=== PATIENT | female | born 1945 | race Caucasian/White ===

== ENCOUNTER 2016-09-26 07:30 | Inpatient (IN) | payer MEDICARE ==
[~2016-09-26] VITALS: Ht 149.9 cm; Wt 100.4 kg
[~2016-09-26 07:30] MED LIST: ASPI-110 PO; CARD240C6 PO; CARV3.125 PO; LORA-373 PO; MULT1TAB84 PO; SERT-132 PO; VITA100018 PO
[2016-10-03] MEDS ORDERED: CARV3.12 PO (06:12)
[2016-10-03 06:13] VITALS: BP 134/59; PULSE 62; RESP 16; TEMP 97.8; O2SAT 97
[2016-10-03] MEDS ORDERED: ceFAZolin 1,000 MG/NS 100 ML IV SCH ×2 (06:15)
[2016-10-03] MEDS ORDERED: HEPARIN SODIUM - SQ 10,000 UNITS/ML VIAL SQ SCH (06:15)
[2016-10-03] MEDS ORDERED: INSULIN HUMAN REGULAR 1,000 UNITS/10 ML VIAL SQ PRN (06:30)
[2016-10-03] MEDS ORDERED: METOPROLOL TARTRATE 25 MG TAB PO PRN (06:30)
[2016-10-03] MEDS ORDERED: CHLORHEXIDINE GLUCONATE 2 % 1 PACK (2 CLOTHS) TOPICAL PRN (06:30)
[2016-10-03] MEDS ORDERED: SODIUM CHLORID 0.9% 500 ML IV PRN (06:30)
[2016-10-03] MEDS ORDERED: LACTATED RINGER'S 1000 ML IV PRN (06:30)
[2016-10-03] MEDS ORDERED: POVIDONE IODINE 5% (ANTISEPSIS KIT) 4 APPLICATIONS EACH NARE PRN (06:30)
[2016-10-03] MEDS ORDERED: HYDROmorphone HCL PF 2 MG/ML VIAL ONE (06:51)
[2016-10-03] MEDS ORDERED: ACETAMINOPHEN 1000 MG/100 ML VIAL IV ONE ×2 (06:51→07:10)
[2016-10-03] MEDS ORDERED: SUGAMMADEX SODIUM 200 MG/2 ML VIAL IV PUSH ONE ×2 (06:51)
[2016-10-03] MEDS ORDERED: FAMOTIDINE 20 MG/2 ML VIAL ONE (07:10)
[2016-10-03] MEDS ORDERED: DEXAMETHASONE SOD PHOS 4 MG/ML VIAL ONE (07:15)
[2016-10-03] MEDS ORDERED: MIDAZOLAM HCL 2 MG/2 ML VIAL ONE (07:15)
[2016-10-03] MEDS ORDERED: LIDOCAINE 1%/EPINEPHrine 1:100,000 SOLN 30 ML VIAL INFIL ONE (08:00)
[2016-10-03] MEDS ORDERED: METHYLENE BLUE 10 MG/ML VIAL OTHER ONE (10:33)
[2016-10-03] MEDS: KETOROLAC TROMETHAMINE 30 MG/ML (IVP) VIAL IVP SCH ×3 (12:00→23:47)
[2016-10-03] MEDS ORDERED: SODIUM CHLORIDE 0.9% FLUSH 10 ML FLUSH IV FLUSH PRN (12:00)
[2016-10-03] MEDS ORDERED: LORazepam 0.5 MG TAB PO PRN (12:00)
[2016-10-03] MEDS ORDERED: ONDANSETRON HCL 4 MG/2 ML VIAL IVP PRN (12:00)
[2016-10-03] MEDS ORDERED: diphenhydrAMINE HCL 25 MG CAP PO PRN (12:00)
[2016-10-03] MEDS: D5-1/2 NS + KCL 20 MEQ INJ 1,000 ML IV SCH ×2 (12:23→23:50)
[2016-10-03] MEDS ORDERED: DO NOT ADM ANY ANTICOAGULANT DRUGS PRN (12:30)
[2016-10-03] MEDS ORDERED: *morphine SULFATE 8 MG/ML PERIprocedure ONLY ONE ×2 (12:42→13:11)
--- NOTE | 2016-10-03 13:17 | EKG ---
Date Performed: 10/03/2016 Time Performed: 06:28:54 PTAGE: 71 years EKG: Sinus rhythm NORMAL ECG Patient is no longer in rapid atrial fibrillation compared to the old tracing. PREVIOUS TRACING 04/20/16 16.02.58 DOCTOR: Mingo Garay Interpretating Date/Time 10/03/2016 13:15:14
[2016-10-03 14:40] VITALS: BP 123/60; PULSE 64; RESP 20; TEMP 96.1; O2SAT 99
[2016-10-03] MEDS ORDERED: ePHEDrine/NS 25 MG/5 ML SYR IV ONE (14:56)
[2016-10-03] MEDS ORDERED: PROPOFOL 200 MG/20 ML AMP IV ONE (14:56)
[2016-10-03] MEDS ORDERED: NORMOSOL R INJ 1,000 ML IV ONE (14:57)
[2016-10-03] MEDS ORDERED: KETOROLAC TROMETHAMINE 60 MG/2 ML (IM) VIAL IM ONE (14:57)
[2016-10-03] MEDS ORDERED: LACTATED RINGER'S 1000 ML INJ 1,000 ML IV ONE (14:57)
[2016-10-03] MEDS ORDERED: ONDANSETRON HCL 4 MG/2 ML VIAL IV PUSH ONE (14:57)
--- NOTE | 2016-10-03 15:21 | PD.ONC.PN ---
Subjective Subjective Remarks Post op note pt doing well no complaints family at bedside she is eating full liquids denies any nausea or vomiting Objective Data Date Time Temp Pulse Resp B/P Pulse Ox O2 Delivery O2 Flow Rate FiO2 10/03/16 14:40 96.1 64 20 123/60 99 10/03/16 13:45 97.3 69 14 117/59 95 Nasal Cannula 2 10/03/16 13:30 67 11 110/54 96 10/03/16 13:15 70 14 112/51 98 10/03/16 13:00 66 12 113/52 96 10/03/16 12:45 65 10 113/57 95 10/03/16 12:30 63 14 113/93 96 10/03/16 12:15 67 12 114/54 96 Nasal Cannula 2 10/03/16 12:00 97.2 74 18 100/54 97 Nasal Cannula 2 10/03/16 06:13 97.8 62 16 134/59 97 10/03/16 10/03/16 10/03/16 06:59 14:59 22:59 Intake Total 1800 ml Output Total 500 ml Balance 1300 ml Laboratory Results Laboratory Tests Test 10/03/16 06:10 Blood Type A POSITIVE Antibody Screen POSITIVE Antibody Identification Anti-K Antigen Identification K Antigen - NEGATIVE Crossmatch Leukocyte-Reduced Red Blood Cells Blood Bank Comment Administered Medications Medications (Trade) Dose Ordered Sig/Lis Route PRN Reason Start Time Stop Time Status Last Admin Dose Admin Potassium Chloride/Dextrose/ Sod Cl (D5-1/2 NS + KCl 20 Meq Inj) 1,000 ml @ 100 mls/hr Q10H IV 10/03/16 13:00 10/03/16 12:23 Objective Remarks GENERAL: Well-nourished, well-developed patient. SKIN: Warm and dry. HEAD: Normocephalic. EYES: No scleral icterus. No injection or drainage. NECK: Supple, trachea midline. CARDIOVASCULAR: Regular rate and rhythm without murmurs. RESPIRATORY: Breath sounds equal bilaterally. No accessory muscle use. GASTROINTESTINAL: Abdomen soft, non-tender, nondistended. SS are c/d/i EXTREMITIES: teds and scds MUSCULOSKELETAL: Adequate muscle tone. NEUROLOGICAL: No obvious focal deficit. Awake, alert, and oriented x3. PSYCHIATRIC: Appropriate mood and affect; insight and judgment normal. Assessment/Plan Problem List: (1) Ovarian cancer Status: Acute (2) Post-operative state Status: Acute Plan: post op orders are in the chart IS to bedside ADAT ok to get OOB to chair pain meds per EMR anticipate D/C home tomorrow Leah De Luna October 03, 2016 15:21
[2016-10-03 16:43] VITALS: BP 126/60; PULSE 73; RESP 20; TEMP 96.3; O2SAT 97
[2016-10-03 20:00] VITALS: BP 117/56; PULSE 75; RESP 16; TEMP 97.7; O2SAT 96
[2016-10-03] MEDS: SODIUM CHLORIDE 0.9% FLUSH 10 ML FLUSH IV FLUSH SCH (20:31)
[2016-10-03] MEDS: traMADol HCL 50 MG TAB PO PRN (20:31)
[2016-10-03] MEDS: CARVEDILOL 3.125 MG TAB PO SCH (20:31)
[2016-10-04] VITALS: BP 109/55; PULSE 71; RESP 16; TEMP 97.7; O2SAT 97
[2016-10-04] MEDS: traMADol HCL 50 MG TAB PO PRN ×2 (03:50→11:22)
[2016-10-04 04:00] VITALS: BP 114/56; PULSE 72; RESP 16; TEMP 96.3; O2SAT 99
[2016-10-04] MEDS: KETOROLAC TROMETHAMINE 30 MG/ML (IVP) VIAL IVP SCH (05:55)
[2016-10-04] MEDS ORDERED: ULTR50TA5 PO (07:43)
[2016-10-04 08:04] VITALS: O2SAT 96; O2SAT 97
[2016-10-04] MEDS: CARVEDILOL 3.125 MG TAB PO SCH (08:22)
[2016-10-04] MEDS: SODIUM CHLORIDE 0.9% FLUSH 10 ML FLUSH IV FLUSH SCH (08:25)
[2016-10-04 08:53] VITALS: BP 130/63; PULSE 70; RESP 20; TEMP 96.5; O2SAT 92
[2016-10-04] MEDS ORDERED: SERTRALINE HCL 50 MG TAB PO SCH (09:00)
[2016-10-04] MEDS ORDERED: DILTIAZEM-CD 240 MG CAP ER PO SCH (09:00)
[2016-10-04 09:13] LABS: AUTOMATED NEUTROPHIL # 6.8 TH/MM3 (1.8-7.7); BASOPHIL % 0.3 % (0.0-2.0); HEMATOCRIT 27.2 % (35.0-46.0); HEMO FLAGS DIFF FINAL; LYMPH % 6.7 % (9.0-44.0); LYMPHOCYTE # 0.5 TH/MM3 (1.0-4.8); MEAN CELL VOLUME 106.8 FL (80.0-100.0); MEAN CORPUSCULAR HEMOGLOBIN 37.2 PG (27.0-34.0); MEAN CORPUSCULAR HGB CONC 34.8 % (32.0-36.0); MONO % 6.8 % (0.0-8.0); NEUT % 86.2 % (16.0-70.0); PLATELET COUNT 231 TH/MM3 (150-450); RED BLOOD COUNT 2.55 MIL/MM3 (4.00-5.30); WHITE BLOOD COUNT 7.9 TH/MM3 (4.0-11.0)
[2016-10-04 10:03] LABS: BICARBONATE 27.6 MEQ/L (21.0-32.0); POTASSIUM 4.8 MEQ/L (3.5-5.1)
--- NOTE | 2016-10-04 10:51 | MP ---
cc: MADONNA DAVE D.O., KELLY L. MD DATE OF SURGERY: 10/03/2016 PREOPERATIVE DIAGNOSIS 1. Ovarian cancer. 2. Status post neoadjuvant Taxol and carboplatin chemotherapy. POSTOPERATIVE DIAGNOSIS 1. Ovarian cancer. 2. Status post neoadjuvant Taxol and carboplatin chemotherapy. 3. Extensive intraperitoneal adhesions. PROCEDURE Laparoscopy with extensive lysis of adhesions, robotic-assisted laparoscopic hysterectomy, bilateral salpingo-oophorectomy, omentectomy. SURGEON Tiki Calvin FLOOR INSPECTOR [employer]. ANESTHESIA General endotracheal anesthesia. ESTIMATED BLOOD LOSS 200 cc. IV FLUIDS 1800 cc. URINE OUTPUT 300 cc. HISTORY A 71-year-old female who presented with ascites, carcinomatosis, omental tumor, pelvic masses, elevated CA-125 of approximately 2400. Biopsy confirmed papillary serous adenocarcinoma. She has been treated now with Taxol and carboplatin neoadjuvant and had an excellent response to chemotherapy. I believe she has had at least 5 cycles of chemotherapy. Her CA-125 and physical exam have normalized. Her CAT scan showed dramatic improvement in measurable disease. She is counseled regarding the potential value of interval surgery, understands it is expected there will still likely be cancer detected in the histologic specimens and that additional chemotherapy would be needed. We have discussed laparoscopy robotics, understands she may have extensive adhesions given her prior surgical history, previous hernia repair with mesh placement. She is seen in the pre-op holding area where these findings are again discussed and reviewed. She expresses good understanding and would like to move forward with surgery. FINDINGS Upon laparoscopic entry in the left upper quadrant there were adhesions immediately around the cannula. The omentum was densely adherent to the anterior abdominal wall from the abdomen extending down into the pelvis. There was what appeared to be two separate surgical hernia meshes in the abdominal wall to which the omentum is densely adherent with a portion of transverse colon loosely adherent to this area. There were adhesions in the right and left lower quadrant and there were filmy adhesions obliterating the cul-de-sac fixing the ovaries to the pelvic sidewalls and limited mobility of the colon and loops of small bowel. What is immediately noted is the dramatic response to chemotherapy. Clearly where the filmy adhesions are suggests previous tumor. There are some fine implants no bigger than 1-3 mm that appear almost completely obliterated from chemotherapy. There is no mass effect. The omentum despite being densely adherent and somewhat thickened has no overt tumor mass or overt grossly visible tumor. The ovaries and not appreciably enlarged. The uterus is normal. There is no appreciably enlarged lymph nodes. At the conclusion of the case essentially there is no measurable disease that process. There is no ascites. There is perhaps 1-3 mm implants which are flat or level with the peritoneum suggesting that they were tumor that has responded to chemotherapy. There is no grossly detectable tumor beyond this that remains at the completion of the case. STATEMENT OF COMPLEXITY The complexly of this case was significantly increased due to extensive adhesions requiring a significant amount of time and effort at laparoscopy to gain surgical exposure to restore normal anatomy and then with the robotic portion to help additional lysis of adhesions to accomplish surgical objectives, and modifier should be applied accordingly. DETAILS OF PROCEDURE The patient was taken to the operating room, placed in dorsal lithotomy position. After general endotracheal anesthesia was administered a timeout was undertaken. The patient was identified by sight recognition and hospital ID bracelet, and the proposed procedure was reviewed and confirmed. She was carefully positioned in padded Brian stirrups. Her arms were padded and secured to the sides. She was further secured to the operating table with eggcrate padding and tape in a cross chest over the shoulder fashion. All sites were noted to be properly aligned with no malalignments or pressure points. She was prepped in sterile fashion, draped below the waist, placed in high lithotomy position. The cervix was grasped. The uterine cavity was sounded. The standard VCare manipulator was inserted and secured in the usual fashion. A Alan catheter was placed in the bladder. She was returned to low lithotomy position. A change of sterile gloves was undertaken and we completed draping in anticipation of laparoscopy. We confirmed that an orogastric tube was in the stomach on suction. With manual elevation of the abdominal wall and direct laparoscopic visualization a 5 mm cannula was introduced into the peritoneal cavity. Carbon dioxide gas was insufflated. Visibility was limited due to adhesions immediately surrounding the cannula which were taken down with blunt grasper. The camera was reinserted and visibility to the peritoneal cavity was allowed. Under laparoscopic visualization a 12 mm cannula was able to be placed in the right upper quadrant. Adhesions were taken down in the midline with blunt dissection until a space was cleared to allow a 12 mm cannula to be placed in the midline above the umbilicus. Blunt dissection and sharp dissection was then used to take down the omentum, to peel the omentum attachments and transverse colon from the hernia mesh against the abdominal wall. This dissection was continued toward the pelvis until the distal end of the omentum remained attached at the edge of the lower mesh where the adhesions were dense. Additional bands of adhesions were taken down in the right and left lower quadrant. Filmy adhesions were lysed to help mobilize the colon and small bowel and mobilize small bowel loops from the pelvis to open the cul-de-sac and to take down adhesions around the ovaries. She was placed in steep Trendelenburg position. Peritoneal washings were obtained for cytology. The anatomy was surveyed with findings as described above. A 12 mm cannula was placed in the left lateral quadrant and the original 5 was exchanged for an 8 mm cannula. The distal portion of the omentum was left intentionally adherent to the anterior abdominal wall to help facilitate retraction and dissection. The robotic system was brought into the operative field. Monopolar scissors, fenestrated bipolar forceps and ProGrasp manipulator were placed in arms #1, 2 and 3 respectively. I took my place at the surgeon's console. It is noted that three Ray-Ruel sponges had been placed around the root of the small bowel mesentery. Initiation of dissection was addressed toward taking out the omentum. The dissection was started near the hepatic flexure. Nonvascular attachments were taken down with sharp dissection. Vascular attachments were isolated, cauterized and transected in a stepwise fashion following along the transverse colon. A portion of the gastrocolic ligament was also removed as the vascular pedicles were isolated, cauterized and transected and this was continued up toward the splenic flexure as sharp dissection was used to release nonvascular attachments to the transverse colon. Vascular attachments were isolated, cauterized and transected. This was continued in a stepwise fashion until the infracolic omentum had been detached from the transverse colon and the gastrocolic ligament. The distal portion of the omentum now was taken down with sharp dissection and bipolar cautery was used to render the abdominal wall hemostatic where this was attached. The omentum was placed in the right lower quadrant for later retrieval. Attention was directed toward the pelvis. Additional lysis of adhesion was carried out to further open the cul-de-sac and mobilize the tubes and ovaries and to mobilize the colon from its overlying attachments to the right pelvis. The right round ligament was isolated, cauterized and transected. The anterior and posterior leafs of the broad ligament were opened. The right ureter was identified. The right infundibulopelvic ligament was isolated. The intervening peritoneum was opened. The infundibulopelvic ligament was isolated to the level of the pelvic brim where it was cauterized and transected. The posterior peritoneum was opened along the right side of the uterus and cervix and the right vesicouterine peritoneum dissected off the lower uterine segment and cervix. Additional scar tissue was encountered given her prior sections and these bands of scar tissue were isolated and taken down with sharp dissection until the bladder flap could be retracted below the level of the cervix. The right uterine vessels were skeletonized, cauterized and transected as were the cardinal, paracervical and uterosacral ligaments thereby freeing the attachments along the right side of the uterus and cervix. Attention was directed toward the left side where the left round ligament was isolated, cauterized and transected. The anterior and posterior leafs of the broad ligament were opened. The left ureter was identified. The left infundibulopelvic ligament was isolated. The infundibulopelvic ligament was isolated to the level of the pelvic brim where it was cauterized and transected. The posterior peritoneum was opened along the left side of the uterus and cervix and what remained of the vesicouterine peritoneum was taken down on the left side and the left uterine vessels were skeletonized. The left uterine vessels were cauterized and transected as were the cardinal, paracervical and uterosacral ligaments. Colpotomy was performed the cervix from the upper vagina. The specimen was withdrawn transvaginally which included uterus, cervix, tubes and ovaries and a pneumo-occluder balloon was placed in the vagina to maintain pneumoperitoneum. A 15 cm EndoCatch bag was introduced transvaginally and the omental fragments and specimens were combined and placed in the EndoCatch bag and withdrawn transvaginally. Next, each of the three Ray-Ruel sponges that had been placed in the peritoneal cavity were removed individually using a ring forceps. There were inspected and noted to be removed in their entirety. Visual inspection confirmed there were no remaining foreign objects in the peritoneal cavity. Preliminary counts were correct. Instruments 1 and 3 were exchanged for a needle racing driver as 0 Vicryl 0 suture was introduced. The vaginal cuff was closed starting at the left corner, full-thickness closure incorporating the posterior peritoneum, and the uterosacral ligament tied via instrument tie. The closure was held on countertraction as a running continuous full-thickness closure was carried across the vaginal apex to the contralateral corner where it was similarly suture ligated. The needle was cut and removed. The integrity of the bladder was confirmed by filling the bladder with saline dyed with methylene blue. There was no extravasation of dye, no weak spots in the bladder, good margin between the bladder and the vaginal cuff suture line, good peristalsis of ureters, and the bladder was drained. The pelvis and abdomen were thoroughly irrigated. All sites were noted to be hemostatic. No remaining tumor amenable to surgical resection as described above. The anatomy had been restored to normal where essentially all detectable adhesions had been lysed. The robotic instruments were removed. The robotic system was disengaged from the operative field. I reentered the bedside under sterile condition. We closed and 12 mm fascial defect with interrupted 0 PDS which was tied securely and rendered the fascia completely airtight and hemostatic. The remaining cannulas were withdrawn. Carbon dioxide gas was removed. 3-0 Vicryl subcutaneous, 3-0 Vicryl subcuticular and Steri-Strips were used to close the skin incisions. She was returned to dorsal lithotomy position. Pelvic exam confirmed the vaginal cuff was well-supported, the suture line was intact and hemostatic. There were no vaginal lacerations. There were no remaining foreign objects in the vagina. Final counts were correct. She was returned to dorsal supine position and was pending reversal of anesthesia when I left the operating room to precede her to the post-anesthesia care unit. MD MANDI Mendez/MAURA /12:32 PM /10:23 AM
[2016-10-04 12:58] VITALS: BP 114/55; PULSE 72; RESP 20; TEMP 97.1; O2SAT 93
--- NOTE | 2016-10-05 08:09 | MD ---
cc: MADONNA DAVE,DAVID LEAL MD, M.D. ADMISSION DATE: 10/03/2016 DISCHARGE DATE: 10/04/2016 PROCEDURE 10/03/2016, laparoscopy with extensive lysis of adhesions, robotic-assisted laparoscopic hysterectomy, bilateral salpingo-oophorectomy, omentectomy. DIAGNOSIS Ovarian cancer status post neoadjuvant Taxol and carboplatin chemotherapy. HOSPITAL COURSE She did well during the first 24 hours postop, tolerated oral intake. Alan catheter was removed pending voiding, hemodynamically stable. OBJECTIVE In's and out's of 2040/900+. Labs pending at the time of this dictation. PHYSICAL EXAMINATION VITAL SIGNS: She is afebrile, pulse 69-75, respirations 14-20, blood pressure 109-123 over 56-60, O2 saturations greater than or equal to 97% while awake. Alert and oriented x3. LUNGS: Clear except for mild rales at the bases. CARDIOVASCULAR: Regular rate and rhythm. ABDOMEN: Soft. Incisions clean and dry. 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 EXTREMITIES: Nontender. ASSESSMENT Postop day #1 doing well in early postop period. Preliminary findings, pathology and steps taken at surgery were discussed and reviewed, activities, restrictions reviewed. Questions were answered. She expressed good understanding. PLAN Anticipate she will meet criteria for discharge to home. She is to call our office to schedule follow up in 2 weeks. She is to resume her prior medications. Prescription is provided for tramadol for pain and our office number is again made available should she have any questions or problems between now and the time of scheduled followup. MD MANDI Mendez/MARCELLA /7:47 AM /8:01 AM
== END 2016-10-04 14:04 | disposition home or self-care (01) | DRG 737 ==
LOC: HSDI 10-03 05:28 → HOCA 10-03 13:56
PROVIDERS: ADMIT Obstetrics & Gynecology Gynecologic Oncology; ATTEND Obstetrics & Gynecology Gynecologic Oncology
PROC: 0UT94ZZ Resection of Uterus, Percutaneous Endoscopic Approach (ICD-10-PCS; 2016-10-03)
PROC: 0UTC4ZZ Resection of Cervix, Percutaneous Endoscopic Approach (ICD-10-PCS; 2016-10-03)
PROC: 0UNF4ZZ Release Cul-de-sac, Percutaneous Endoscopic Approach (ICD-10-PCS; 2016-10-03)
PROC: 0UT74ZZ Resection of Bilateral Fallopian Tubes, Percutaneous Endoscopic Approach (ICD-10-PCS; 2016-10-03)
PROC: 0DBS4ZZ (ICD-10-PCS; 2016-10-03)
PROC: 8E0W4CZ Robotic Assisted Procedure of Trunk Region, Percutaneous Endoscopic Approach (ICD-10-PCS; 2016-10-03)
PROC: 0UT24ZZ Resection of Bilateral Ovaries, Percutaneous Endoscopic Approach (ICD-10-PCS; principal; 2016-10-03 07:16)
DX: C56.9 Malignant neoplasm of unspecified ovary (principal); C78.6 Secondary malignant neoplasm of retroperitoneum and peritoneum; Z92.21 Personal history of antineoplastic chemotherapy; N73.6 Female pelvic peritoneal adhesions (postinfective)
CPT/HCPCS: 80048; 85025; 86077; 86850; 86870; 86900; 86901; 86902; 86920; 86922; 88112; 88305; 88307; 88309; 93005; 94150; J0131; J0690; J1100; J1170; J1644; J1885; J2250; J2270; J2405; J3010; J3480; J7120

== ENCOUNTER 2018-03-16 11:58 | Inpatient (IN) ==
[2018-03-16] MEDS ORDERED: Sod Chloride 0.9% Inj 1,000 ML IV.SIG ONE (12:28)
--- NOTE | 2018-03-16 12:36 | ED ---
HPI General Chief complaint: Recheck/Abnormal Lab/Rx Stated complaint: Dizzy Complaint Time Seen by Provider: 03/16/18 12:20 History of Present Illness HPI narrative: Patient is a 72-year-old female with history of ovarian cancer operated few months ago, was sent to emergency room after procedure of paracentesis. Patient was found and lost to oxygen saturation and low blood pressure. 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 Denies fever, cough, nausea, vomiting, diarrhea or constipation. Related Data Home Medications Medication Instructions Recorded Confirmed carvedilol 3.125 mg PO DAILY 03/16/18 03/16/18 diltiazem HCl [DILT-XR] 240 mg PO DAILY 03/16/18 03/16/18 furosemide 20 mg PO BID 03/16/18 03/16/18 lorazepam 0.5 mg PO Q8H PRN 03/16/18 03/16/18 multivitamin 1 tab PO DAILY 03/16/18 03/16/18 potassium chloride 10 meq PO DAILY 03/16/18 03/16/18 sertraline 50 mg PO DAILY 03/16/18 03/16/18 Allergies Allergy/AdvReac Type Severity Reaction Status Date / Time hydrocodone Allergy Intermediate SEVERE Verified 03/16/18 10:00 ITCHING Review of Systems ROS: all other systems reviewed are negative Constitutional Comments: Generalized weakness PMFSH Medical History Medical History Ascites (Acute) Chronic kidney disease (Acute) History of hysterectomy (Acute) Ovarian cancer (Acute) Port-A-Cath in place (Acute) Social History Social History Substance History: No History of Abuse Smoking Status: Former smoker How Often Do You Have a Drink Containing Alcohol: 2 to 3 times a week Recent Travel in [place] within the Last 8 Weeks: No Recent Out of Country Travel within the Last 8 Weeks: No Exam Narrative Exam Narrative: GENERAL: 72-year-old female in no apparent distress SKIN: Focused skin assessment warm/dry. HEAD: Atraumatic. Normocephalic. EYES: Pupils equal and round. No scleral icterus. No injection or drainage. ENT: No nasal bleeding or discharge. Mucous membranes pink and moist. NECK: Trachea midline. No JVD. CARDIOVASCULAR: Regular rate and rhythm. No murmur appreciated. RESPIRATORY: No accessory muscle use. Clear to auscultation. Breath sounds equal bilaterally. GASTROINTESTINAL: Abdomen soft, mildly tender in periumbilical area, nondistended. Hepatic and splenic margins not palpable. MUSCULOSKELETAL: No obvious deformities. No clubbing. No cyanosis. No edema. NEUROLOGICAL: Awake and alert. No obvious cranial nerve deficits. Motor grossly within normal limits. Normal speech. PSYCHIATRIC: Appropriate mood and affect; insight and judgment normal. 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 Blood work, chest x-ray, urine analysis ordered. IV fluids given. Patient refused pain medications. Hemoglobin is slightly lower than usually, rectal exam was done, stool is guaiac negative. Patient has persistently low blood pressure at level 90-100 systolic, generalized weakness. Calcium is 7.4, replaced. Patient was placed on observation under Dr. Green service. Medical Screen Exam Complete: Yes Emergency Medical Condition: Yes Differential Diagnosis Differential Diagnosis: UTI versus pneumonia versus metastasis. Lab Data Result diagrams: 03/16/18 12:40 03/16/18 12:40 Lab Results 03/16/18 03/16/18 03/16/18 Range/Units 12:40 12:40 12:40 WBC 8.6 (4.0-11.0) th/mm3 RBC 2.45 L (4.00-5.30) mil/mm3 Hgb 8.5 L (11.6-15.3) gm/dL Hct 24.9 L (35.0-46.0) % MCV 101.9 H (80.0-100.0) fL MCH 34.7 H (27.0-34.0) pg MCHC 34.1 (32.0-36.0) % RDW 12.9 (11.6-17.2) % Plt Count 291 (150-450) th/mm3 MPV 7.0 (7.0-11.0) fL Neut % (Auto) 93.6 H (16.0-70.0) % Lymph % (Auto) 5.0 L (9.0-44.0) % [place] % (Auto) 0.7 (0.0-8.0) % Eos % (Auto) 0.5 (0.0-4.0) % Baso % (Auto) 0.2 (0.0-2.0) % Neut # (Auto) 8.1 H (1.8-7.7) th/mm3 Lymph # (Auto) 0.4 L (1.0-4.8) th/mm3 [place] # (Auto) 0.1 (0.0-0.9) th/mm3 Eos # (Auto) 0.0 (0.0-0.4) th/mm3 Baso # (Auto) 0.0 (0.0-0.2) th/mm3 WBC Differential . Differential Comment Auto diff final Puncture Site Patient Temperature O2 Saturation (90-100) % ABG pH (7.380-7.420) ABG pCO2 (38-42) mmHg ABG pO2 (61-120) mmHg ABG HCO3 (22-26) mmol/L ABG O2 Content (12.0-20.0) Vol % ABG Base Excess (-2-2) mmol/L ABG Methemoglobin (0-2) % Brian Test Hemoglobin (12.0-16.0) G/DL Carboxyhemoglobin (0-4) % O2 Delivery Device Inspired O2 % Critical Value Sodium 132 L (136-145) meq/L Potassium 3.9 (3.5-5.1) meq/L Chloride 97 L (98-107) meq/L Carbon Dioxide 23.0 (21.0-32.0) meq/L Anion Gap 12 (5-15) meq/L BUN 28 H (7-18) mg/dL Creatinine 2.28 H (0.50-1.00) mg/dL Estimated GFR 21 L (>89) mL/min Random Glucose 95 (74-106) mg/dL Calcium 7.4 L* (8.5-10.1) mg/dL Prot Corrected Calcium 7.8 L (8.5-10.1) mg/dL Magnesium 1.5 (1.5-2.5) mg/dL Total Bilirubin 0.4 (0.2-1.0) mg/dL AST 51 H (15-37) U/L ALT 29 (10-53) U/L Alkaline Phosphatase 59 (45-117) U/L Troponin I Less than 0.02 L (0.02-0.05) ng/mL B-Natriuretic Peptide 20 (0-100) pg/mL Total Protein 6.3 L (6.4-8.2) g/dL Albumin 2.9 L (3.4-5.0) g/dL Urine Color (Yellw/Straw) Urine Clarity (Clear) Urine pH (5.0-8.5) Ur Specific [place] (1.002-1.035) Urine Protein (Neg-Trace) mg/dL Urine Glucose (UA) (Negative) mg/dL Urine Ketones (Negative) mg/dL Urine Occult Blood (Negative) Urine Nitrate (Negative) Urine Bilirubin (Negative) Urine Urobilinogen (Less than 2) mg/dL Ur Leukocyte Esterase (Negative) Urine RBC (0-3) /hpf Urine WBC (0-5) /hpf Ur Squamous Epith Cells (0-5) /hpf Urine Bacteria (None) /hpf Hyaline Casts (0-3) /lpf Urine Mucus (Occasional) /lpf Micro UA Comment Ur Microscopic Review Urine Culture Comments 03/16/18 03/16/18 Range/Units 12:55 14:06 WBC (4.0-11.0) th/mm3 RBC (4.00-5.30) mil/mm3 Hgb (11.6-15.3) gm/dL Hct (35.0-46.0) % MCV (80.0-100.0) fL MCH (27.0-34.0) pg MCHC (32.0-36.0) % RDW (11.6-17.2) % Plt Count (150-450) th/mm3 MPV (7.0-11.0) fL Neut % (Auto) (16.0-70.0) % Lymph % (Auto) (9.0-44.0) % [place] % (Auto) (0.0-8.0) % Eos % (Auto) (0.0-4.0) % Baso % (Auto) (0.0-2.0) % Neut # (Auto) (1.8-7.7) th/mm3 Lymph # (Auto) (1.0-4.8) th/mm3 [place] # (Auto) (0.0-0.9) th/mm3 Eos # (Auto) (0.0-0.4) th/mm3 Baso # (Auto) (0.0-0.2) th/mm3 WBC Differential Differential Comment Puncture Site Right radial Patient Temperature 98.6 O2 Saturation 90 (90-100) % ABG pH 7.38 (7.380-7.420) ABG pCO2 41 (38-42) mmHg ABG pO2 65 (61-120) mmHg ABG HCO3 24 (22-26) mmol/L ABG O2 Content 15.0 (12.0-20.0) Vol % ABG Base Excess -0.5 (-2-2) mmol/L ABG Methemoglobin 0.6 (0-2) % Brian Test Present Hemoglobin 11.9 L (12.0-16.0) G/DL Carboxyhemoglobin 1.7 (0-4) % O2 Delivery Device Ra Inspired O2 21 % Critical Value No Sodium (136-145) meq/L Potassium (3.5-5.1) meq/L Chloride (98-107) meq/L Carbon Dioxide (21.0-32.0) meq/L Anion Gap (5-15) meq/L BUN (7-18) mg/dL Creatinine (0.50-1.00) mg/dL Estimated GFR (>89) mL/min Random Glucose (74-106) mg/dL Calcium (8.5-10.1) mg/dL Prot Corrected Calcium (8.5-10.1) mg/dL Magnesium (1.5-2.5) mg/dL Total Bilirubin (0.2-1.0) mg/dL AST (15-37) U/L ALT (10-53) U/L Alkaline Phosphatase (45-117) U/L Troponin I (0.02-0.05) ng/mL B-Natriuretic Peptide (0-100) pg/mL Total Protein (6.4-8.2) g/dL Albumin (3.4-5.0) g/dL Urine Color [place] (Yellw/Straw) Urine Clarity Cloudy H (Clear) Urine pH 5.0 (5.0-8.5) Ur Specific [place] 1.017 (1.002-1.035) Urine Protein 30 H (Neg-Trace) mg/dL Urine Glucose (UA) Negative (Negative) mg/dL Urine Ketones Negative (Negative) mg/dL Urine Occult Blood Small H (Negative) Urine Nitrate Negative (Negative) Urine Bilirubin Negative (Negative) Urine Urobilinogen 2.0 H (Less than 2) mg/dL Ur Leukocyte Esterase Negative (Negative) Urine RBC 1 (0-3) /hpf Urine WBC 6 H (0-5) /hpf Ur Squamous Epith Cells 2 (0-5) /hpf Urine Bacteria Few H (None) /hpf Hyaline Casts 89 (0-3) /lpf Urine Mucus Few H (Occasional) /lpf Micro UA Comment Cath-culture ind Ur Microscopic Review Not Reportable Urine Culture Comments Cath-cult indicated Imaging Data Radiologist's impression: Chest X-Ray 03/16/18 12:28 CONCLUSION: 1. No acute cardiopulmonary disease. Discharge Plan Discharge Disposition Patient Disposition: 30 Still Patient Discharge Condition Condition: Fair Discharge Details Diagnosis: Symptomatic hypotension, Hypocalcemia Physicians Team ED Provider: Pedro Judge Primary Care Provider: Simon Borrego Rxs /Orders / Referrals /Forms Prescriptions: No Action multivitamin Tablet 1 tab PO DAILY RF: 0 diltiazem HCl [DILT-XR] 240 mg Capsule,Ext.Rel 24h Degradable 240 mg PO DAILY RF: 0 potassium chloride 10 mEq Tablet Extended Release 10 meq PO DAILY RF: 0 carvedilol 3.125 mg Tablet 3.125 mg PO DAILY RF: 0 lorazepam 0.5 mg Tablet 0.5 mg PO Q8H PRN (Reason: Anxiety) RF: 0 furosemide 20 mg Tablet 20 mg PO BID RF: 0 sertraline 50 mg Tablet 50 mg PO DAILY RF: 0 Discharge Interventions Interventions: Vital Signs Last Done: 03/16/18 14:59 Status ED Status: Admitted Patient
[2018-03-16 12:57] LABS: Baso % (Auto) 0.2 % (0.0-2.0); Eos % (Auto) 0.5 % (0.0-4.0); Hematocrit 24.9 % (35.0-46.0); Hemoglobin 8.5 gm/dL (11.6-15.3); Lymph # (Auto) 0.4 th/mm3 (1.0-4.8); Mean Corpuscular HGB Conc 34.1 % (32.0-36.0); Mean Corpuscular Hemoglobin 34.7 pg (27.0-34.0); Mean Corpuscular Volume 101.9 fL (80.0-100.0); Mono # (Auto) 0.1 th/mm3 (0.0-0.9); Mono % (Auto) 0.7 % (0.0-8.0); Neut # (Auto) 8.1 th/mm3 (1.8-7.7); Neut % (Auto) 93.6 % (16.0-70.0); Platelet Count 291 th/mm3 (150-450); Red Blood Count 2.45 mil/mm3 (4.00-5.30); Red Cell Distribution Width 12.9 % (11.6-17.2); White Blood Count 8.6 th/mm3 (4.0-11.0)
--- NOTE | 2018-03-16 13:03 | XR ---
EXAM DATE: 03/16/2018 12:52 PM EDT AGE/SEX: 72 years / Female INDICATIONS: Low blood pressure post paracentesis. CLINICAL DATA: This is the patient's initial encounter. Patient reports that signs and symptoms have been present for 1 day and indicates a pain score of 3/10. MEDICAL/SURGICAL HISTORY: None. . Carcinoma, ovarian. section. Tonsillectomy. Hysterec consuelo. Hernia surgery. COMPARISON: [facility], CT CHEST W AND W/O CONTRAST, 02/28/2018. . FINDINGS: Right IJ [id number]. No significant new focal pleural or parenchymal opacities.. The cardiomedias tinal contours are unremarkable. Osseous structures are intact. CONCLUSION: 1. No acute cardiopulmonary disease. Electronically signed by: Giorgio Ramsey MD 03/16/2018 1:01 PM EDT
[2018-03-16 13:05] LABS: ABG Base Excess -0.5 mmol/L (-2-2); ABG PCO2 41 mmHg (38-42); ABG PO2 65 mmHg (61-120)
[2018-03-16 13:28] LABS: Alanine Aminotransferase 29 U/L (10-53); Albumin 2.9 g/dL (3.4-5.0); Alkaline Phosphatase 59 U/L (45-117); Anion Gap 12 meq/L (5-15); Aspartate Aminotransferase 51 U/L (15-37); Blood Urea Nitrogen 28 mg/dL (7-18); Calcium 7.4 mg/dL (8.5-10.1); Chloride 97 meq/L (98-107); Glomerular Filtration Rate 21 mL/min (>89); Glucose,Random 95 mg/dL (74-106); Magnesium 1.5 mg/dL (1.5-2.5); Potassium 3.9 meq/L (3.5-5.1); Sodium 132 meq/L (136-145); Total Protein 6.3 g/dL (6.4-8.2)
[2018-03-16] MEDS ORDERED: Hydrocortisone Sod Succinate 100 MG Vial IV.PUSH ONE (14:38)
[2018-03-16 14:46] LABS: Bacteria,Urine Few /hpf; Bilirubin,Urine Negative (Negative); Clarity,Urine Cloudy (Clear); Color,Urine Amber (Yellw/Straw); Glucose,Urine (UA) Negative (Negative); Hyaline Casts,Urine 89 /lpf (0-3); Leukocyte Esterase,Urine Negative (Negative); Mucus,Urine Few /lpf (Occasional); Nitrite,Urine Negative (Negative); Specific Gravity,Urine 1.017 (1.002-1.035); Squamous Epithelial Cell,Urine 2 /hpf (0-5)
--- NOTE | 2018-03-16 15:59 | P.HPIM ---
History of Present Illness Primary Care Physician: Simon Borrego History of Present Illness: Mrs. 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 She presented to the ED at [facility] [place] with hypotension, generalized weakness, and dizziness. She states that she was started on new chemotherapy, gemcitabine , [address] Calvin. She has had a poor appetite, generalized weakness and intermittent dizziness for the last few days. She denies any chest pain, SOB , fevers/chills, dysuria, urinary frequency. She has had a poor appetite and decreased oral intake the last few days as well. She reports that the Lasix and potassium are new medications for her which were added to try to help with the recently diagnosed malignant ascites. She was seen today by IR for paracentesis and had 2L of bloody ascites removed. She was noted to be hypotensive with reported systolic BP in the 70's and was sent to the ED for evaluation. Pt was given IVF in the ED but her BP persisted to be low in the 90's systolic. Pt reports that she has not taken any of her BP meds this morning. 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 She underwent neoadjuvant chemotherapy with Taxol and carboplatin and had a rapid normalization of her Ca-125 after 2 cycles of chemotherapy. Despite normalization of her Ca-125, she still had measurable disease and after a few more cycles she underwent interval cytoreductive surgery followed by additional Taxol and carboplatin chemotherapy. She received a total of 10 cycles of Taxol and carboplatin which she completed in February 2017. Pt was found to have malignant ascites and elevation of her Ca- 125 in 02/2018 Hyperlipidemia HTN Paroxysmal atrial fibrillation when she had port placed in 2017 Systolic dysfunction, EF 45-50% 2D echo (06/21/17): - LV systolic dysfunction, EF 45-50% - Mild LA enlargement - Borderline LVH - Moderate TR Past Surgical Hx: Paracentesis, started in 02/2018. Pt has had three paracentesis over the last few weeks. Port placement Cytoreductive surgery Hernia surgery x 3 Cesarian section Left total knee arthroplasty Family Hx: Noncontributory Social Hx: (+)Alcohol use, one glass of wine 2-3 times per week, once or twice per week she had a few glasses of wine when she sings kareoke Denies any tobacco or illicit drug use Diagnosis (1) Symptomatic hypotension: (2) Recurrent carcinoma of ovary: (3) HTN (hypertension): (4) Systolic dysfunction without heart failure: (5) Paroxysmal atrial fibrillation: (6) GEO (acute kidney injury): Medications and Allergies Allergies Allergy/AdvReac Type Severity Reaction Status Date / Time hydrocodone Allergy Intermediate SEVERE Verified 03/16/18 10:00 ITCHING Home Medications Medication Instructions Recorded Confirmed Type carvedilol 3.125 mg PO DAILY 03/16/18 03/16/18 History diltiazem HCl [DILT-XR] 240 mg PO DAILY 03/16/18 03/16/18 History furosemide 20 mg PO BID 03/16/18 03/16/18 History lorazepam 0.5 mg PO Q8H PRN 03/16/18 03/16/18 History multivitamin 1 tab PO DAILY 03/16/18 03/16/18 History potassium chloride 10 meq PO DAILY 03/16/18 03/16/18 History sertraline 50 mg PO DAILY 03/16/18 03/16/18 History Active Medications: Active Medications Sodium Chloride (Ns Flush) 2 ml IV.FLUSH PRN PRN PRN Reason: FLUSH AFTER USING IV ACCESS Physical Exam Vital signs: Last Vital Signs Temp 98.4 F 03/16/18 12:03 Pulse 69 03/16/18 14:59 Resp 12 03/16/18 14:59 BP 95/45 L 03/16/18 14:59 Pulse Ox 100 03/16/18 14:59 Narrative: GENERAL: NAD, AAOx3 SKIN: Warm and dry. HEENT: Atraumatic. Normocephalic. Pupils equal and round. No scleral icterus. No injection or drainage. No nasal bleeding or discharge. Mucous membranes pink and moist. NECK: Trachea midline. No JVD. CARDIO: Regular rate and rhythm. RESP: CTA bilaterally. ABD: +BS, soft, non-tender, nondistended. Hepatic and splenic margins not palpable. EXT: Extremities without clubbing, cyanosis, or edema. No obvious deformities. NEURO: Awake and alert. No obvious cranial nerve deficits. Motor grossly within normal limits. Five out of 5 muscle strength in the arms and legs. Normal speech. PSYCHIATRIC: Appropriate mood and affect; insight and judgment normal. Results Labs CBC & Chem 7: 03/16/18 12:40 03/16/18 12:40 Imaging Chest X-Ray 03/16/18 12:28 CONCLUSION: 1. No acute cardiopulmonary disease. Caprini VTE Risk Assessment Caprini VTE Risk Assessment: Moderate/High Risk (score >= 2) Caprini Risk Assessment Model: Point Value = 1 Point Value = 2 Point Value = 3 Point Value = 5 Age 41-60 Minor surgery BMI > 25 kg/m2 Swollen legs Varicose veins or History of unexplained or recurrent spontaneous Oral contraceptives or hormone replacement Sepsis (< 1 month) Serious lung disease, including pneumonia (< 1 month) Abnormal pulmonary function Acute myocardial infarction Congestive heart failure (< 1 month) History of inflammatory bowel disease Medical patient at bed rest Age 61-74 Arthroscopic surgery Major open surgery (> 45 min) Laparoscopic surgery (> 45 min) Malignancy Confined to bed (> 72 hours) Immobilizing plaster cast Central venous access Age >= 75 History of VTE Family history of VTE Factor V Leiden Prothrombin [id number] Lupus anticoagulant Anticardiolipin antibodies Elevated serum homocysteine Heparin-induced thrombocytopenia Other congenital or acquired thrombophilia Stroke (< 1 month) Elective arthroplasty Hip, pelvis, or leg fracture Acute spinal cord injury (< 1 month) Prophylaxis Regimen: Total Risk Factor Score Risk Level Prophylaxis Regimen 0-1 Low Early ambulation 2 Moderate Order ONE of the following: *Sequential Compression Device (SCD) *Heparin 5000 units SQ BID 3-4 Higher Order ONE of the following medications: *Heparin 5000 units SQ TID *Enoxaparin/Lovenox 40 mg SQ daily (WT < 150 kg, CrCl > 30 mL/min) *Enoxaparin/Lovenox 30 mg SQ daily (WT < 150 kg, CrCl > 10-29 mL/min) *Enoxaparin/Lovenox 30 mg SQ BID (WT < 150 kg, CrCl > 30 mL/min) AND/OR *Sequential Compression Device (SCD) 5 or more Highest Order ONE of the following medications: *Heparin 5000 units SQ TID (Preferred with Epidurals) *Enoxaparin/Lovenox 40 mg SQ daily (WT < 150 kg, CrCl > 30 mL/min) *Enoxaparin/Lovenox 30 mg SQ daily (WT < 150 kg, CrCl > 10-29 mL/min) *Enoxaparin/Lovenox 30 mg SQ BID (WT < 150 kg, CrCl > 30 mL/min) AND *Sequential Compression Device (SCD) Assessment and Plan Assessment (1) GEO (acute kidney injury): Code(s): N17.9 - Acute kidney failure, unspecified Status: Acute (2) Symptomatic hypotension: Code(s): I95.89 - Other hypotension Status: Acute (3) Recurrent carcinoma of ovary: Code(s): C56.9 - Malignant neoplasm of unspecified ovary Status: Chronic (4) HTN (hypertension): Code(s): I10 - Essential (primary) hypertension Status: Chronic (5) Systolic dysfunction without heart failure: Code(s): I51.89 - Other ill-defined heart diseases Status: Chronic (6) Paroxysmal atrial fibrillation: Code(s): I48.0 - Paroxysmal atrial fibrillation Status: Chronic Plan Symptomatic hypotension GEO Dehydration/Poor oral intake - Pt is a 72 y/o female with 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 She presented to the ED at [facility] [place] on 03/16/18 with hypotension, generalized weakness, and dizziness. - She states that she was started on new chemotherapy, gemcitabine, [address] Calvin. She has had a poor appetite, generalized weakness and intermittent dizziness for the last few days. She has had a poor appetite and decreased oral intake the last few days as well. She reports that the Lasix and potassium are new medications for her which were added to try to help with the recently diagnosed malignant ascites. She was seen today by IR for paracentesis and had 2L of bloody ascites removed. She was noted to be hypotensive with reported systolic BP in the 70's and was sent to the ED for evaluation. - Her labs in the ED indicated likely some dehydration with noted Cr 2.28/BUN 28 , GFR 21. This is a significant change from previous labs a few weeks ago. - The EGO may be secondary to dehydration/poor oral intake in the setting of recently starting Lasix. But cannot rule out ATN with her hypotension. - UA was abnormal in the ED, await urine culture - Blood cultures ordered - Pt was given a bolus of IVF in the ED but her BP persisted to be low in the 90 's systolic. 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 She follows with Dr. Calvin. She underwent neoadjuvant chemotherapy with Taxol and carboplatin and had a rapid normalization of her Ca-125 after 2 cycles of chemotherapy. Despite normalization of her Ca-125, she still had measurable disease and after a few more cycles she underwent interval cytoreductive surgery followed by additional Taxol and carboplatin chemotherapy. She received a total of 10 cycles of Taxol and carboplatin which she completed in February 2017. In February 2018 she began having increased abd distension and was found to have ascites. She has had three US guided paracentesis since 03/07/18 with anywhere from 2-4L of ascites removed each time. The fluid was sent for cytology which was positive for adenocarcinoma. Her Ca-125 was noted to have elevated significantly to 570. Outpt CT scan was obtained (02/28/18) which confirmed extensive ascites as well as some peritoneal versus omental nodularity in the left upper quadrant along the abdominal wall, approximately 3-4 cm midline hernia above the umbilicus that contains fat, and a question regarding deposits near the left kidney and caudate lobe of the liver. - Pt recently started back on a new line of chemo with gemcitabine, [address] Calvin. - Monitor labs counts - Pt has been undergoing repeat paracentesis about once per week for the last 3 weeks with removal of 2-4L of bloody ascetic fluid - Pt is afebrile and WBC count is normal HTN Systolic dysfunction Paroxysmal atrial fibrillation - Hold home meds - Monitor HR on telemetry - Monitor for any signs of volume overload
[2018-03-16] MEDS ORDERED: Acetaminophen 325 MG Tablet PO PRN (16:28)
[2018-03-16] MEDS ORDERED: Sod Chloride 0.9% Inj 1,000 ML IV.CONT SCH (16:30)
[2018-03-16] MEDS ORDERED: LORazepam 0.5 MG Tablet PO PRN (17:17)
[2018-03-16] MEDS: Senna/Docusate Sodium 8.6/50 MG Tablet PO SCH (21:38)
[2018-03-17 07:24] LABS: Baso % (Auto) 0.2 % (0.0-2.0); Eos # (Auto) 0.1 th/mm3 (0.0-0.4); Eos % (Auto) 0.7 % (0.0-4.0); Hematocrit 25.5 % (35.0-46.0); Hemoglobin 8.4 gm/dL (11.6-15.3); Lymph # (Auto) 0.5 th/mm3 (1.0-4.8); Lymph % (Auto) 5.9 % (9.0-44.0); Mean Corpuscular HGB Conc 33.1 % (32.0-36.0); Mean Corpuscular Volume 102.8 fL (80.0-100.0); Mean Platelet Volume 7.2 fL (7.0-11.0); Mono % (Auto) 0.5 % (0.0-8.0); Neut # (Auto) 7.6 th/mm3 (1.8-7.7); Neut % (Auto) 92.7 % (16.0-70.0); Platelet Count 284 th/mm3 (150-450); Red Blood Count 2.48 mil/mm3 (4.00-5.30); Red Cell Distribution Width 12.7 % (11.6-17.2); White Blood Count 8.2 th/mm3 (4.0-11.0)
[2018-03-17] MEDS: Senna/Docusate Sodium 8.6/50 MG Tablet PO SCH (08:08)
[2018-03-17 08:12] LABS: Alanine Aminotransferase 30 U/L (10-53); Albumin 2.3 g/dL (3.4-5.0); Alkaline Phosphatase 66 U/L (45-117); Anion Gap 10 meq/L (5-15); Aspartate Aminotransferase 45 U/L (15-37); Blood Urea Nitrogen 28 mg/dL (7-18); Calcium 8.3 mg/dL (8.5-10.1); Carbon Dioxide 25.5 meq/L (21.0-32.0); Chloride 101 meq/L (98-107); Glomerular Filtration Rate 37 mL/min (>89); Glucose,Random 117 mg/dL (74-106); Potassium 3.6 meq/L (3.5-5.1); Sodium 136 meq/L (136-145); Total Protein 5.9 g/dL (6.4-8.2)
[2018-03-17] MEDS ORDERED: Sertraline 50 MG Tablet PO SCH (09:00)
--- NOTE | 2018-03-17 09:12 | P.PNIM ---
Subjective Interval history: denies dizziness. ambulating to BR. eager for dc home. Physical Exam Vital signs: Last Vital Signs Temp 97.4 F L 03/17/18 08:03 Pulse 67 03/17/18 08:03 Resp 16 03/17/18 08:03 BP 124/64 03/17/18 08:03 Pulse Ox 98 03/17/18 08:03 Narrative: GENERAL: NAD, AAOx3 SKIN: Warm and dry. HEENT: Atraumatic. Normocephalic. Pupils equal and round. No scleral icterus. No injection or drainage. No nasal bleeding or discharge. Mucous membranes pink and moist. NECK: Trachea midline. No JVD. CARDIO: Regular rate and rhythm. RESP: CTA bilaterally. ABD: +BS, soft, non-tender, nondistended. Hepatic and splenic margins not palpable. EXT: Extremities without clubbing, cyanosis, or edema. No obvious deformities. NEURO: Awake and alert. No obvious cranial nerve deficits. Motor grossly within normal limits. Five out of 5 muscle strength in the arms and legs. Normal speech. PSYCHIATRIC: Appropriate mood and affect; insight and judgment normal. Results Labs CBC & Chem 7: 03/17/18 06:04 03/17/18 06:04 Assessment and Plan Assessment (1) Symptomatic hypotension: Code(s): I95.89 - Other hypotension Status: Acute (2) Recurrent carcinoma of ovary: Code(s): C56.9 - Malignant neoplasm of unspecified ovary Status: Chronic (3) HTN (hypertension): Code(s): I10 - Essential (primary) hypertension Status: Chronic (4) Systolic dysfunction without heart failure: Code(s): I51.89 - Other ill-defined heart diseases Status: Chronic (5) Paroxysmal atrial fibrillation: Code(s): I48.0 - Paroxysmal atrial fibrillation Status: Chronic (6) GEO (acute kidney injury): Code(s): N17.9 - Acute kidney failure, unspecified Status: Acute Plan Symptomatic hypotension GEO Dehydration/Poor oral intake - Pt is a 72 y/o female with 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 She presented to the ED at [facility] on 03/16/18 with hypotension, generalized weakness, and dizziness. - She states that she was started on new chemotherapy, gemcitabine, [address] Calvin. She has had a poor appetite, generalized weakness and intermittent dizziness for the last few days. She has had a poor appetite and decreased oral intake the last few days as well. She reports that the Lasix and potassium are new medications for her which were added to try to help with the recently diagnosed malignant ascites. She was seen today by IR for paracentesis and had 2L of bloody ascites removed. She was noted to be hypotensive with reported systolic BP in the 70's and was sent to the ED for evaluation. - Her labs in the ED indicated likely some dehydration with noted Cr 2.28/BUN 28 , GFR 21. This is a significant change from previous labs a few weeks ago. - The GEO may be secondary to dehydration/poor oral intake in the setting of recently starting Lasix. But cannot rule out ATN with her hypotension. - UA was abnormal in the ED, await urine culture - Blood cultures ordered - Pt was given a bolus of IVF in the ED but her BP persisted to be low in the 90 's systolic. - Hold home BP meds - We will continue to give some gentle IVF hydration especially in the setting of her GEO and monitor labs closely - Encourage oral intake - DVT prophylaxis with SCDs, pt reports intolerance to anticoagulants ( including ASA) in the past due to easy bruising/bleeding propensity Reassessed today. dizziness and hypotension resolved. anemia from chemo stable. renal function much improved dc and hold lasix and cardizme. cont coreg with parameters. f/u dr Calvin on Monday. called pcp. dc with c to check. 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 She follows with Dr. Calvin. She underwent neoadjuvant chemotherapy with Taxol and carboplatin and had a rapid normalization of her Ca-125 after 2 cycles of chemotherapy. Despite normalization of her Ca-125, she still had measurable disease and after a few more cycles she underwent interval cytoreductive surgery followed by additional Taxol and carboplatin chemotherapy. She received a total of 10 cycles of Taxol and carboplatin which she completed in February 2017. In February 2018 she began having increased abd distension and was found to have ascites. She has had three US guided paracentesis since 03/07/18 with anywhere from 2-4L of ascites removed each time. The fluid was sent for cytology which was positive for adenocarcinoma. Her Ca-125 was noted to have elevated significantly to 570. Outpt CT scan was obtained (02/28/18) which confirmed extensive ascites as well as some peritoneal versus omental nodularity in the left upper quadrant along the abdominal wall, approximately 3-4 cm midline hernia above the umbilicus that contains fat, and a question regarding deposits near the left kidney and caudate lobe of the liver. - Pt recently started back on a new line of chemo with gemcitabine, [address] Calvin. - Monitor labs counts - Pt has been undergoing repeat paracentesis about once per week for the last 3 weeks with removal of 2-4L of bloody ascetic fluid - Pt is afebrile and WBC count is normal HTN Systolic dysfunction Paroxysmal atrial fibrillation - Progress Note: Quality VTE Deep Vein Thrombosis/Pulmonary Embolism Present on Admission: No
--- NOTE | 2018-03-17 09:17 | P.DCO ---
Diagnosis (1) Symptomatic hypotension: Status: Acute Physical Therapy Order: Evaluate and treat Home Health Nursing Order: Medical education, Signs/symptoms of disease process, Medication education-adverse effect and Nursing assessment with vital signs Instructions: please check pt blood pressure. her cardizem is on hold due to hypotension coreg resumed. hold coreg if systolic less than 110. Case Management Consult Yes I have seen patient Rosangela Mcnulty on 03/17/18. My clinical findings support the need for the requested home health care services because: Limited mobility due to disease progression and Need for psychosocial assistance I certify that my clinical findings support that this patient is homebound because: Need for psychosocial assistance
[2018-03-17] MEDS ORDERED: Simethicone 125 MG Chew Tablet PO ONE (11:10)
--- NOTE | 2018-03-19 00:43 | ECG ---
Date Performed: 03/16/2018 Time Performed: 14:13:05 PTAGE: 72 years EKG: Sinus rhythm NONSPECIFIC T-WAVE ABNORMALITY BORDERLINE ECG PREVIOUS TRACING : 10/03/2016 06.28 Since the previous tracing, no significant change noted DOCTOR: Conner Velasquez Interpretating Date/Time 03/19/2018 00:42:56
== END 2018-03-17 12:10 | disposition home health service (06) ==
LOC: NEPC 11:58 → NEDA 11:58 → NEPHCDU 16:50 → HCIN 22:36
PROVIDERS: ADMIT Hospitalist; ATTEND Hospitalist